=== PATIENT | female | born 2005 | race Caucasian/White ===

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

== ENCOUNTER 2025-01-22 16:00 | Emergency (ER) | payer MEDICAID, SELFPAY ==
--- NOTE | ~2025-01-22 | CT_ITS ---
EXAMINATION: CT HEAD WITHOUT CONTRAST CLINICAL INFORMATION: Headache COMPARISON: None available. TECHNIQUE: Contiguous axial imaging was performed from the skull base to vertex without intravenous administration of contrast. This CT examination was performed using dose optimization techniques as appropriate, variously including the following: *Automated exposure control *Adjustment of mA and/or kV according to patient size (this includes techniques or standardized protocols for targeted exams where dose is matched to indication/reason for exam; i.e. extremities or head) *Use of iterative reconstruction technique FINDINGS: There is no acute ischemic change. There is no intracranial hemorrhage. There is no mass-effect or midline shift. Basal cisterns and ventricles are within normal limits for age/cerebral volume. Orbits are symmetrical and unremarkable. Paranasal sinuses and mastoid air cells are pneumatized. There are no bony abnormalities. CT/CT head/brain wo IV con IMPRESSION: No acute intracranial abnormality. Electronically signed by: Garrett Naik MD 01/22/2025 04:57 PM EDT
[2025-01-22 16:03] VITALS: BP 135/81; PULSE 89; RESP 20; TEMP 37; O2SAT 98; BMI 19.6
--- NOTE | 2025-01-22 16:11 | ED_ITS ---
HPI - General Adult General Chief complaint: Headache Stated complaint: head pain Time Seen by Provider: 01/22/25 19:06 Source: patient Mode of arrival: ambulatory Limitations: no limitations History of Present Illness ED Provider: Cooper Brown HPI narrative: 19-year-old female with history of headache/migraine presents to ED for right- sided headache with ear pain. Patient denies any eye pain, nausea, vomiting, dizziness, chest pain, shortness of breath, slurred speech, facial droop, paralysis of extremities, or loss of vision. Patient is denies any change in vision. Patient denies any recent trauma. Patient denies any neck stiffness fever or chills. Related Data Previous Rx's ?Medication ?Instructions ?Recorded amoxicillin 875 mg-potassium 1 tab PO BID #14 tabs clavulanate 125 mg tablet naproxen 500 mg tablet 500 mg PO BID PRN pain #14 t abs 01/22/25 Allergies Allergy/AdvReac Type Severity Reaction Status Date / Time No Known Allergies Allergy Verified 01/22/25 16:06 Review of Systems Review of Systems: Right-sided headache Yes all other systems are reviewed and are negative Neurologic: Comments: Right-sided headache Psychiatric: Psychiatric: Reports no additional psychiatric complaints PMFSH Social History Social History Advance Directives: No Advance Directives Information Provided: No Physical Exam ED Vital Signs: Vital Signs - 24 hr 01/22/25 16:03 01/22/25 19:19 01/22/25 19:24 Temperature 98.6 F 98.2 F 98.2 F Pulse Rate 89 79 79 Respiratory Rate 20 14 14 Blood Pressure 135/81 100/62 100/62 Pulse Oximetry 98 99 99 Oxygen Delivery Method Room Air Room Air Room Air BMI result Body Mass Index 19.6 Const Orientation/consciousness: patient oriented x3 HENMT Head: Yes normal to inspection, Yes No palpable skull fracture present, Yes normocephalic, Yes atraumatic and No abrasion Ears: hearing grossly normal bilaterally, external ears normal, TM's normal bilaterally, TM normal on the right, TM normal on the left, EAC's normal, mastoids normal and no periauricular adenopathy Throat: Yes posterior oropharynx normal, Yes tonsils normal and Yes uvula midline Eyes General: appearance normal, both eyes and all related structures Visual Cox: normal visual cox by confrontation Alignment and Position: alignment normal Periorbital: periorbital findings normal Eyelids: Yes eyelids normal Conjunctivae: conjunctivae normal Sclerae: sclerae normal Corneas: corneas normal Pupils: Equal, round and reactive pupils present EOM: EOMs intact bilaterally Direct Ophthalmoscopy: normal light reflex Neck Neck: Yes normal visual inspection, Yes full ROM, Yes no lymphadenopathy, Yes no meningeal signs, Yes trachea midline, Yes supple, No anterior neck swelling and No tender Chest Chest palpation & inspection: normal inspection of the chest and normal palpation of entire chest wall Resp Effort & Inspection: normal respiratory effort and able to speak in complete sentences Auscultation: clear to auscultation bilaterally Cardio Jugular venous distension: no JVD Heart sounds: S1 normal heart sound present and S2 normal heart sound present GI Inspection: Yes normal to inspection Palpation (GI): Soft to palpation, not firm, nontender, no guarding and not rigid General: Yes no CVA tenderness Back/Spine/Pelvis Back: no CVA tenderness and No back tenderness Skin General skin exam: no rashes or lesions noted, elasticity normal and turgor normal Neuro General: patient oriented x3, gait normal, tone normal, moves all extremities, Normal light touch and pain sensation, no meningeal signs, no focal motor deficits, CN's II-XI intact bilaterally and normal sensation to monofilament Cranial nerves: Yes Equal, round and reactive pupils present Extrem General: Yes normal to inspection, Yes full ROM and Yes capillary refill normal Psych Appearance: grossly normal, well kempt and not disheveled Medications Administered Discontinued Medications Generic Name Dose Route Start Last Admin Trade Name Freq PRN Reason Stop Dose Admin Ibuprofen 800 mg 01/22/25 19:01/22/25 19:18 Ibuprofen 800 Mg Tablet PO 01/22/25 19:10 800 mg ONCE ONE Administration Metoclopramide HCl 10 mg 01/22/25 19:09 01/22/25 19:18 Metoclopramide Hcl 10 Mg Tablet PO 01/22/25 19:10 10 mg ONCE ONE Administration Medical Decision Making Medical Decision Making [facility] Narrative: 19-year-old female presents to ED for right-sided headache in right ear pain without any photophobia, eye pain, nausea, vomiting, chest pain, shortness of breath, fever, chills, recent trauma. Vital signs are stable. Patient denies any eye pain. Negative for signs of meningitis. Not suspecting glaucoma, stroke, encephalitis, temporal arteritis, aneurysm rupture, menigitis or any other life-threatening etiology. Patient will be discharged with pain medication. Delilah Jones ordered urine ED visits. Patient and parents explained worrisome signs and informed to return to the ED immediately. Ear exam negative for signs of otitis media, externa, or mastoiditis Differential Diagnosis Differential Diagnoses: The differential diagnosis associated with the presentation includes (Migraine, headache, ear infection, COVID, influenza.) Admission/Observation Consideration of admission/observation: Escalation of care including admission/observation considered Lab Data MDM Lab Attestation statement: I reviewed the patient's lab results. Labs: Lab Results 01/22/25 Range/Units 16:22 COVID-19 ([place]) Negative (Negative) COVID-19 Clin Com See Note Influenza Type A ([place]) Negative (Negative) Influenza Type B ([place]) Negative (Negative) Influenza A & B Note See Note S. pyogenes GrpA [place] Negative (Negative) Independent Historian Clinical information obtained from an independent historian. History obtained from or confirmed by: Other (patient) Prescription Management I considered prescription management with: Pain Medication Discharge Plan Discharge Clinical Impression: Headache Patient Disposition: Home, Self-Care Instructions: General Headache (ED) Additional Instructions: Your CAT scan came back reassuring. Swabs came back negative for signs of infection. Recommend follow up with primary care provider. Return to the ED immediately for any slurred speech, facial droop, paralysis of extremities, nausea, vomiting, headache, dizziness, weakness, or any other concerning symptoms. Prescriptions: New naproxen 500 mg tablet 500 mg PO BID PRN (Reason: pain) Qty: 14 0RF No Action amoxicillin-pot clavulanate 875-125 mg tablet 1 tab PO BID Qty: 14 0RF Referrals: Kaci Kyle MD [Primary Care Provider, Pediatrics] - 2 days Referral Note: Headache Clinical Impression: Headache Stand Alone Forms: Work/School Release Interventions: ED Discharge Assessment Last Done: 01/22/25 19:24 Discharge Date/Time: 01/22/25 19:25 Print Language: Estonian
[2025-01-22 16:45] LABS: IDNOW Serial# 08D9AD1C; IDNOW Serial# 58CA691E; Influenza B2 Negative (Negative); Strep A Nucleic Acid Negative (Negative)
[2025-01-22 16:48] LABS: COVID-19 Test Negative (Negative); IDNOW Serial# 6674DD1D
--- OUTSIDE RECORDS SUMMARY | 2025-01-22 19:09 | XMS_ITS | Clinical Summary ---
Author Organization [facility] Address [address] [place] [address] Care Team Providers Care Lpta Name Role Phone Unavailable Primary Care Provider Unavailabl e Source Comments PLEASE NOTE, if this patient is a minor, it may be UNLAWFUL to discuss sensitive information that is contained in these records (such as FAMILY PLANNING, MENTAL HEALTH or SUBSTANCE ABUSE) with the minor patient's parent or other person without the patient's specific authorization.[facility] Social History Tobacco Use Types Packs/Day Years Used Date Smoking Tobacco: Never Assessed Social Connections Answer Date Recorded Connectedness 0 01/05/2024 Financial Resource Strain Answer Date R ecorded Financial Resource Strain 0 2022 Stress Answer Date Recorded Stress 0 05/10/2022 Physical Activity Answer Date Recorded Physical Activity 0 05/10/2022 Food Insecurity Answer Date Recorded Food 0 01/17/2024 Transportation Needs Answer Date Record ed Transportation 0 05/10/2022 Housing Stability Answer Date Recorded Housing 0 05/10/2022 Safety and Environment Answer Date Leonides rded Safety 0 05/10/2022 Utilities Answer Date Recorded Utilities 0 05/10/2022 Employment Answer Date Recorded Stress 0 01/05/2024 Comments Unknown Sex and Gender Information Value Date Recorded Sex Assigned at Not on file Legal Sex Female 11:47 AM PST Gender Identity Not on file Sexual Orientation Not on file Plan of Treatment Health Maintenance Due Date Last Done Comments Anxiety Screening 2005 Hepatitis C Screening 2005 STI Counseling 2005 Tobacco Screening 2005 Imm-MMR (1 of 1 - Standard series) 2006 Chlamydia Screening 2018 Gonorrhea Screening 2018 Imm-Varicella (1 of 2 - 13+ 2-dose series) 2018 HIV Screening 2020 Imm-HPV (1 - 3-dose series) 2020 Relationship Safety Screening/Counseling 2020 Hypertension Screening (#1) 09/05/2023 Alcohol and Drug Screen 04/23/2024 Depression Annual Screen 04/23/2024 Imm-DTaP/Tdap/Td (1 - Tdap) 2024 Imm-Hepatitis B (1 of 3 - 19 + 3-dose series) 2024 [id number] (1 - 2023- season) 2024 Imm-Influenza (#1) 2024 Imm-Hepatitis A Aged Out No longer el igible based on patient's age to complete this topic Imm-IPV (Polio) Aged Out No longer el igible based on patient's age to complete this topic Insurance [place]
--- OUTSIDE RECORDS SUMMARY | 2025-01-22 19:09 | XMS_ITS | Clinical Summary ---
Author Organization [facility] Address [address] [place] [address] Care Team Providers Care Bulk Filler Name Role Phone Kaci Fletcher MD Primary Care Provider [phone] Social History Tobacco Use Types Packs/Day Years Used Date Smoking Tobacco: Never Assessed Comments Unknown Sex and Gender Information Value Date Recorded Sex Assigned at Female 01/31/2022 1:54 AM EDT Legal Sex Female 1:54 AM EDT Gender Identity Not on file Sexual Orientation Not on file Last Filed Vital Signs Vital Sign Reading Time Taken Comments Blood Pressure - - Pulse - - Temperature - - Respiratory Rate - - Oxygen Saturation - - Inhaled Oxygen Concentration - - Weight 51.6 kg (113 lb 12.1 oz) 01/18/2022 2:43 PM EDT Height 158.6 cm (5' 2.44 ) 01/18/2022 2:43 PM ED T Body Mass Index 20.51 01/18/2022 2:43 PM EDT Body Mass Index Percentile 48.67% 01/18/2022 2:4 3 PM EDT Growth Chart: CDC (Girls, 2- 20 Years) Plan of Treatment Not on file Care Teams Bulk Filler Relationship Specialty Start Date End Date Kaci Fletcher MD [facility] [address] [place] [address] PCP - General 01/18/22
[2025-01-22 19:19] VITALS: BP 100/62; PULSE 79; RESP 14; TEMP 36.8; O2SAT 99
[2025-01-22 19:24] VITALS: BP 100/62; PULSE 79; RESP 14; TEMP 36.8; O2SAT 99
== END 2025-01-22 19:25 | disposition home or self-care (01) ==
PROVIDERS: Physician Assistant; Emergency Provider Emergency Medicine; PCP Pediatrics Adolescent Medicine
DX: R51.9 Headache, unspecified (principal); H92.01 Otalgia, right ear; Z79.899 Other long term (current) drug therapy
CPT/HCPCS: 70450; 87502; 87635; 87651; 99284

== ENCOUNTER → 2025-01-22 16:10 | Outpatient (BNV) | payer MEDICAID, SELFPAY | PROVIDERS: PCP Pediatrics Adolescent Medicine; Visit Provider Radiology Diagnostic Radiology | DX: R51.9 Headache, unspecified (principal) | CPT/HCPCS: 70450 ==